=== PATIENT | female | born 1985 | race Caucasian/White ===

== ENCOUNTER 2019-12-07 14:23 | Outpatient (CLI) | payer BC ==
--- NOTE | 2019-12-07 14:50 | RAD ---
Sacroiliac joints 3 views HISTORY: Back pain. FINDINGS: Joint spaces are preserved. Very mild osteophytosis. Sacral alae are intact. No aggressive erosions. IMPRESSION : Minimal osteoarthritic changes. No acute osseous abnormalities are demonstrated.
== END 2019-12-07 14:24 | disposition home or self-care (01) ==
LOC: BICRAD 14:23
PROVIDERS: ATTEND Internal Medicine Rheumatology
DX: M54.89 Other dorsalgia (principal); M47.818 Spondylosis without myelopathy or radiculopathy, sacral and sacrococcygeal region
CPT/HCPCS: 72202